=== PATIENT | male | born 1985 | race Caucasian/White ===

== ENCOUNTER 2019-01-04 10:15 | Emergency (ER) | payer OTHER ==
[~2019-01-04] VITALS: Ht 185.4 cm; Wt 76.2 kg
[2019-01-04] MEDS ORDERED: FLEXERIL PO (11:33)
[2019-01-04 11:44] VITALS: BP 100/70
--- NOTE | 2019-01-05 18:20 | EKG ---
[place] [address] [facility] [place] [address] ELECTROCARDIOGRAM REPORT Name: Patric Billings [facility] [id number] ������������������ Admission: 01/04/19 ������������������ Attend Phys: Discharge: 01/04/19 ������������������ Date of : 89 Report #: [id number] ����������������������������������������������������������������� [id number] THIS REPORT FOR: //name// [facility] ED Test Date: 2019-01-04 Test Time: 10:27:10 Pat Name: Patric Billings Department: Room: Gender: Architectural Draftsperson: Mary : 1985 Requested By: Joe Ayala Order Number: [id number] MD: Kervin Regan Measurements Intervals [place] Rate: 55 P: -5 SD: 177 QRS: -46 QRSD: 94 T: 58 QT: 426 QTc: 408 Interpretive Statements Sinus bradycardia Leftward axis No previous ECG available for comparison Electronically Signed On 01-05-2019 18:19:49 CDT by Kervin Regan [email or web address] ��������������������������������������������� <ELECTRONICALLY SIGNED> ���������������������������������������� By: Kervin Regan MD, [facility] ��������������������������������������������� 01/05/19 1819 1027 1027 Kervin Regan MD, FACC /EPI
== END 2019-01-04 11:52 | disposition home or self-care (01) ==
LOC: ER 10:15
DX: S29.012A Strain of muscle and tendon of back wall of thorax, initial encounter (principal); W18.39XA Other fall on same level, initial encounter; Y92.002 Bathroom of unspecified non-institutional (private) residence as the place of occurrence of the external cause; Y93.89 Activity, other specified; Y99.8 Other external cause status